=== PATIENT | female | born 1985 | race Caucasian/White ===

== ENCOUNTER 2017-07-31 13:18 | Emergency (ER) | payer OTHER ==
--- NOTE | 2017-07-31 14:49 | ERNOTE ---
Lower Extremity HPI - General Lower Extremities Pain: knee: left Time Seen by Provider: 07/31/17 14:27 Source: patient Exam Limitations: no limitations - Immun/Allergies/Home Medications Allergies/Adverse Reactions: Allergies Allergy/AdvReac Type Severity Reaction Status Date / Time No Known Allergies Allergy Verified 07/31/17 13:33 Home Medications: HOME MEDICATIONS NK [No Home Medication] 07/31/17 [Last Taken Unknown] - History of Present Illness Narrative: Patient works as a lubrication worker. Yesterday she was loading her car when she slipped on gravel and twisted her left knee (did not fall) and had slight pain after that. Later that afternoon and left knee gave out on her and she fell on the left knee, denies any further injury. She continues to have pain in the knee and is here for evaluation Date (Duration): 07/30/17 Occurred: yesterday Location of Incident: work Method of Injury: Reports: twisted Loss of Consciousness: Reports: no loss of consciousness Modifying Factors - (Improves): Reports: rest Modifying Factors - (Worsens): Reports: movement Associated Symptoms: Denies: unable to bear weight, dizzy/light headedness, vomiting/diarrhea Other Injuries: Reports: none Subsequent Symptoms: Denies: sensory loss Prior Treament: Denies: recently seen, similar symptoms before Review of Systems - Review of Systems Constitutional: Absent: recent illness, fever ENT: Absent: nose congestion, sore throat Respiratory: Absent: shortness of breath Cardiology: Absent: chest pain Gastrointestinal/Abdominal: Absent: nausea, abdominal pain Genitourinary: Present: no symptoms reported Musculoskeletal: Present: See HPI Skin: Present: no symptoms reported Neurological: Absent: weakness, numbness - Patient's Past Medical History Patient History - Medical: No pertinent hx Patient History - Cardiac/Respiratory: No pertinent hx Patient History - Cancer: No Hx of Cancer Patient History - Surgical Procedures: No surgical history LMP (Calendar): 07/13/17 - Family History Father Family History - Cancer: Leukemia, Stomach, Testicular - Social History Living Situations: home Psych History: No pertinent hx Smoking Status: Never smoker Have you smoked in the past 12 months: No Do you dip or chew tobacco: No Alcohol Use: none Drug Use: none Physical Exam - Physical Exam General Appearance: Present: wd/wn, alert, no apparent distress Head Exam: Present: normal inspection Respiratory: Present: no respiratory distress, normal breath sounds, lungs clear Cardiovascular/Chest: Present: regular rate, rhythm Extremity Exam: Present: normal inspection, non-tender, normal range of motion, other - no ligamental laxity, no effusion, patient has pain with weight bearing only Neurological Exam: Present: alert, oriented, normal mood/affect, no motor/ sensory deficits Skin Exam: Present: normal color, warm/dry ED Progress - Vital Signs Patient's Vital Signs:: I have reviewed the patient's vital signs. Vital Signs: Vital Signs 07/31/17 13:31 Temperature 37.2 C Pulse Rate 72 Respiratory 16 Rate Blood Pressure 134/72 O2 Sat by Pulse 100 Oximetry - X-Ray X-Ray #1 X-Ray: knee - no fracture Interpretation: Interp. by me - Progress/Reassessment Chief Complaint: Lower Extremity Pain/ Injury Progress Note-Subjective: 07/31/17 14:40 discussed xray with patient Departure Clinical Impression: Left knee sprain Qualifiers: Encounter type: initial encounter Involved ligament of knee: unspecified ligament Qualified Code(s): S83.92XA - Sprain of unspecified site of left knee, initial encounter - Departure Disposition: Home self-care Condition: Good Instructions: Knee Pain, [id number] Additional Instructions: take over the counter ibuprofen (200mg) four tablets three times a day as needed for pain if your pain doesn't improve you might need further testing Referrals: Melani Eastman, PAC [[facility]] -
[2017-07-31 15:48] VITALS: BP 125/74
== END 2017-07-31 14:51 | disposition home or self-care (01) ==
LOC: ER 13:18
DX: S83.92XA Sprain of unspecified site of left knee, initial encounter (principal); W01.0XXA Fall on same level from slipping, tripping and stumbling without subsequent striking against object, initial encounter; Y93.89 Activity, other specified; Y92.414 Local residential or business street as the place of occurrence of the external cause; Y99.0 Civilian activity done for income or pay